=== PATIENT | male | born 1990 | race Caucasian/White ===

== ENCOUNTER 2016-08-04 15:34 | Emergency (ER) | payer MEDICAID ==
[~2016-08-04] VITALS: Ht 175.3 cm; Wt 90.7 kg
[2016-08-04 15:41] VITALS: BP 122/67
== END 2016-08-04 17:24 | disposition home or self-care (01) ==
LOC: ER 15:37
DX: M72.2 Plantar fascial fibromatosis (principal)
CPT/HCPCS: 73630

== ENCOUNTER 2018-05-01 19:57 | Emergency (ER) | payer MEDICAID ==
[~2018-05-01] VITALS: Ht 170.2 cm; Wt 95.3 kg
[2018-05-01] MEDS ORDERED: NALOXONE HCL 0.4 MG/ML VIAL IV ONE (20:30)
[2018-05-01] MEDS ORDERED: FLUMAZENIL 0.1 MG/ML INJ 10ML MDV IV ONE (20:30)
[2018-05-01] MEDS ORDERED: SODIUM CHLORIDE 0.9% 2,000 ML IV ONE (20:30)
[2018-05-01 21:06] LABS: Basophils # (auto) 0.1 uL; Basophils % (auto) 1.5 % (0.0-2.0); Eosinophils # (auto) 0.1 uL; Eosinophils % (auto) 1.7 % (0.0-7.0); Hematocrit 50.5 % (41.0-53.0); Hemoglobin 16.8 g/dL (13.5-17.5); Lymphocytes # (auto) 1.4 uL; Lymphocytes % (auto) 15.7 % (10.0-50.0); Mean Corpuscular Hemoglobin 31.8 pg (28.0-32.0); Mean Corpuscular Hgb Conc. 33.2 g/dL (32.0-36.0); Mean Corpuscular Volume 95.8 fL (80.0-100.0); Monocytes # (auto) 0.7 uL; Monocytes % (auto) 8.1 % (0.0-12.0); Neutrophils # (auto) 6.5 uL; Nucleated Red Blood Cells % 0.1 %; Platelet Count (auto) 290 10^3/uL (140-450); Red Blood Cells 5.27 10^6/uL (4.5-5.90); Red Cell Distribution Width 14.8 % (11.8-14.3)
[2018-05-01 21:24] LABS: Alanine Aminotransferase 41 U/L (16-61); Albumin 3.4 g/dL (3.4-5.0); Anion Gap 4 (5-15); Aspartate Aminotransferase 22 U/L (15-37); Blood Urea Nitrogen 10 mg/dL (7-18); Calcium 8.1 mg/dL (8.5-10.1); Carbon Dioxide 25 mmol/L (21-32); Chloride 112 mmol/L (98-107); GFR African American > 60 mL/min; GFR Non-African American > 60 mL/min; Glucose 77 mg/dL (74-106); Potassium 3.8 mmol/L (3.5-5.1); Sodium 141 mmol/L (136-145)
[2018-05-01 21:26] LABS: Alkaline Phosphatase 98 U/L (45-117); Bilirubin, Total 0.4 mg/dL (0.2-1.0); Total Protein 6.8 g/dL (6.4-8.2)
[2018-05-02 00:09] LABS: Acetaminophen < 2.0 ug/mL (10-30); Salicylate 50.2 mg/dL (2.8-20.0)
[2018-05-02] MEDS: POTASSIUM CHL 20MEQ/100ML 100 ML IV SCH ×2 (01:00→03:10)
[2018-05-02] MEDS ORDERED: D5W 5% 1,000 ML IV ONE (01:00)
[2018-05-02] MEDS ORDERED: SODIUM BICARBONATE 8.4% INJ 50ML SYRINGE ONE (01:12)
[2018-05-02] MEDS ORDERED: POTASSIUM CHL 20MEQ/100ML 100 ML IV ONE (01:14)
[2018-05-02] MEDS ORDERED: SODIUM BICARBONATE 8.4 % INJ 50ML VIAL IV ONE (01:15)
[2018-05-02 01:44] LABS: Urine WBC None Seen /hpf (0 - 3)
[2018-05-02 01:55] LABS: Alanine Aminotransferase 40 U/L (16-61); Albumin 3.3 g/dL (3.4-5.0); Anion Gap 4 (5-15); Aspartate Aminotransferase 23 U/L (15-37); BUN/Creatinine Ratio 9.9; Blood Urea Nitrogen 9 mg/dL (7-18); Calcium 8.2 mg/dL (8.5-10.1); Carbon Dioxide 29 mmol/L (21-32); Chloride 111 mmol/L (98-107); GFR African American > 60 mL/min; GFR Non-African American > 60 mL/min; Glucose 71 mg/dL (74-106); Potassium 4.9 mmol/L (3.5-5.1); Sodium 144 mmol/L (136-145)
[2018-05-02 01:57] LABS: Alkaline Phosphatase 95 U/L (45-117); Bilirubin, Total 0.7 mg/dL (0.2-1.0); Total Protein 6.9 g/dL (6.4-8.2)
[2018-05-02 02:07] LABS: Amphetamine Screen, Urine NEGATIVE (NEGATIVE); Barbiturate Scree,Urine NEGATIVE (NEGATIVE); Benzodiazephine Screen, Urine NEGATIVE (NEGATIVE); Cannabinoid Screen, Urine POSITIVE (NEGATIVE); Cocaine Screen, Urine NEGATIVE (NEGATIVE); Opiate Scree,Urine NEGATIVE (NEGATIVE); Phencyclidine Screen, Urine NEGATIVE (NEGATIVE)
[2018-05-02 02:12] LABS: Urine Bacteria NONE SEEN /hpf (None Seen); Urine Blood Negative /uL (Negative); Urine Specific Gravity 1.012 (1.001-1.035)
[2018-05-02 05:59] LABS: Albumin 3.8 g/dL (3.4-5.0); Anion Gap 6 (5-15); Blood Urea Nitrogen 11 mg/dL (7-18); Calcium 8.6 mg/dL (8.5-10.1); Carbon Dioxide 27 mmol/L (21-32); Chloride 108 mmol/L (98-107); Glucose 92 mg/dL (74-106); Potassium 4.1 mmol/L (3.5-5.1); Sodium 141 mmol/L (136-145)
[2018-05-02 06:04] LABS: Alanine Aminotransferase 42 U/L (16-61); Alkaline Phosphatase 107 U/L (45-117); Aspartate Aminotransferase 28 U/L (15-37); BUN/Creatinine Ratio 12.6; Bilirubin, Total 1.1 mg/dL (0.2-1.0); GFR African American > 60 mL/min; GFR Non-African American > 60 mL/min; Total Protein 7.5 g/dL (6.4-8.2)
[2018-05-02 11:12] VITALS: BP 127/87
== END 2018-05-02 12:23 | disposition short-term general hospital (02) ==
LOC: EDBD 19:57 → ER 19:57
DX: F19.10 Other psychoactive substance abuse, uncomplicated (principal); F10.229 Alcohol dependence with intoxication, unspecified; F32.9 Major depressive disorder, single episode, unspecified
CPT/HCPCS: 36415; 36600; 80053; 80307; 80320; 80329; 81001; 82805; 85025; 93005; 96374; 96375; 99285; J2310; J3480; J7060